=== PATIENT | female | born 1955 | race Caucasian/White ===

== ENCOUNTER → 2022-08-25 | Outpatient (CLI) | payer MEDICARE, SELFPAY ==
--- NOTE | 2022-08-25 14:24 | RAD_ITS ---
INDICATION: PAIN EXAMINATION/TECHNIQUE: X-RAY - RIGHT XR Knee Complete 4 Views or More COMPARISON: None. FINDINGS: 4 views of the right knee. BONES: Normal anatomic alignment without evidence of fracture or subluxation. No concerning bony lesion or abnormal sclerosis to suggest lesion. JOINTS: Mild patellofemoral joint and lateral joint degenerative change. SOFT TISSUES: Rounded soft tissue calcifications at the posterior joint line, likely intra-articular loose bodies. RAD/Knee 4 or More Views IMPRESSION: Likely intra-articular loose bodies of the right knee. No acute osseous abnormality. Electronically Signed: Vargas Yuan MD at 23:05 EDT ,
== END | disposition home or self-care (01) ==
PROVIDERS: PCP Family Medicine; Referring Provider Specialist; Visit Provider Specialist
DX: M25.561 Pain in right knee (principal)
CPT/HCPCS: 73564

== ENCOUNTER → 2022-10-01 | Outpatient (CLI) | payer MEDICARE, SELFPAY ==
--- NOTE | 2022-10-01 07:20 | CT_ITS ---
EXAM: CT RIGHT LOWER EXTREMITY WITHOUT INTRAVENOUS CONTRAST CLINICAL INDICATION: VALGUS DEFORMITY TECHNIQUE: Helically acquired images were obtained of the right lower extremity without intravenous contrast. 2-D reformats were performed by the technologist. CTDIvol = ( 18.76 ) mGy, DLP = ( 1241.87 ) mGycm This CT exam was performed using one or more of the following dose reduction techniques: automated exposure control, adjustment of the mA and/or kV according to patient size, and/or use of iterative reconstruction technique. COMPARISON: No relevant prior studies available. 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 Moderate suprapatellar joint joint effusion. 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 Ankle mortise is intact. Prominent plantar calcaneal enthesophyte. Unremarkable hip joint for age. Soft tissues: Subcutaneous varicosities at the lateral aspect of the knee/hemorrhage. No significant tibiotalar or posterior subtalar joint effusion. CT/Extremity Lower without Contra IMPRESSION: 1. 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 2. 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 3. Ancillary findings as above. Electronically Signed: Lux Larios MD at 22:17 EDT ,
[2022-10-01 08:52] LABS: Absolute Lymphocyte Count 2.52 X10^3/uL (0.83-4.51); Absolute Neutrophil Count 3.6 X10^3/uL (2.0-7.7); Basophil# 0.07 X10^3/uL; Eosinophil# 0.38 X10^3/uL; Eosinophils% 5.2 % (0-5); Hematocrit 41.4 % (37-47); Hemoglobin 13.1 g/dL (12.0-15.0); Lymphocyte # 2.52 X10^3/ul (0.83-4.51); Lymphocyte % 34.8 % (19-41); Mean Corp Hgb Conc 31.6 g/dL (32-36); Mean Corpuscular Hgb 28.6 pg (27.0-32.0); Mean Corpuscular Volume 90.4 fL (81-99); Mean Platelet Vol. 11.3 fl (6.2-12.0); Monocyte# 0.65 X10^3/uL; NRBC Flagged by Analyzer 0 % (0-5); Neutrophil % 49.7 % (47-70); Platelet Count 238 K/mm3 (150-450); RBC Distribution Width CV 14.7 % (11.6-14.6); RBC Distribution Width SD 48.4 fl (35.1-43.9); Red Blood Count 4.58 M/mm3 (4.2-5.4); White Blood Count 7.2 K/mm3 (4.4-11.0)
[2022-10-01 09:19] LABS: Albumin, Serum 3.7 g/dL (3.2-5.0); Anion Gap 4 (5-15); BUN 20 mg/dL (7-18); BUN/Creat Ratio 20.9 RATIO (10-20); Calcium,Total 9.3 mg/dL (8.5-10.1); Chloride 108 mmol/L (98-107); Creatinine, Serum 0.96 mg/dL (0.55-1.02); EST Glomerular Filtration Rate 62 mL/min (>60); Est Glom Filt Rate - Afr Amer 75 mL/min (>60); Glucose 56 mg/dL (74-106); Potassium 3.9 mmol/L (3.5-5.1); Sodium Level 142 mmol/L (136-145)
== END | disposition home or self-care (01) ==
LOC: CT 07:16
PROVIDERS: PCP Family Medicine; Referring Provider Specialist; Visit Provider Specialist
DX: Z01.810 Encounter for preprocedural cardiovascular examination (principal); M17.11 Unilateral primary osteoarthritis, right knee; M21.061 Valgus deformity, not elsewhere classified, right knee
CPT/HCPCS: 36415; 73700; 80048; 82040; 85025; 93005

== ENCOUNTER → 2025-02-11 | Outpatient (CLI) | payer MEDICARE, SELFPAY ==
--- NOTE | 2025-02-11 15:42 | MRI_ITS ---
PROCEDURE: MRI/Spine Cervical (Routine)
== END | disposition home or self-care (01) ==
LOC: MRI 15:36
PROVIDERS: PCP Family Medicine; Referring Provider Orthopaedic Surgery Orthopaedic Surgery of the Spine; Visit Provider Orthopaedic Surgery Orthopaedic Surgery of the Spine
DX: G95.9 Disease of spinal cord, unspecified (principal)
CPT/HCPCS: 72141